=== PATIENT | male | born 1940 | race Hispanic/Latino ===

== ENCOUNTER 2018-02-22 09:57 | Emergency (ER) | payer OTHER, MEDICARE ==
[2018-02-25] MEDS ORDERED: AMIO200T5 PO (20:06)
[2018-02-25] MEDS ORDERED: CICL34.62 TP (20:06)
[2018-02-25] MEDS ORDERED: LISI-613 PO (20:06)
[2018-02-25] MEDS ORDERED: TYL3 PO (20:06)
[2018-02-25] MEDS ORDERED: SIMV10TA6 PO (20:06)
[2018-02-25] MEDS ORDERED: CLIN150C10 PO (20:06)
[2018-02-25] MEDS ORDERED: CARV3.12 PO (20:06)
[2018-02-25] MEDS ORDERED: METF-446 PO (20:06)
[2018-02-25] MEDS ORDERED: GLIM2TAB3 PO (20:06)
== END 2018-02-22 11:51 | disposition home or self-care (01) ==
LOC: EDH 09:57 → EDBD 09:58 → EDHIP 09:58 → UNDOADMIN 09:58 → EDH 11:51
DX: J39.2 Other diseases of pharynx (principal); I10 Essential (primary) hypertension; E11.9 Type 2 diabetes mellitus without complications; Z98.890 Other specified postprocedural states

== ENCOUNTER 2018-03-30 04:18 | Emergency (ER) | payer OTHER, MEDICARE ==
[~2018-03-30 04:18] MED LIST: AMIO200T5 PO; CARV3.12 PO; CICL34.62 TP; CLIN150C10 PO; GLIM2TAB3 PO; LISI-613 PO; METF-446 PO; SIMV10TA6 PO; TYL3 PO
[2018-03-30] MEDS ORDERED: ASPIRIN 325 MG TABLET ONE (04:39)
[2018-03-30 04:50] LABS: BASOPHILS % (AUTO) 1.2 % (0.0-5.0); EOSINOPHILS % (AUTO) 2.5 % (0.0-8.0); HEMATOCRIT 40.4 % (42-54); LYMPHOCYTES % (AUTO) 16.6 % (21.0-51.0); MEAN CORPUSCULAR HEMOGLOBIN 30.5 pg (27.0-33.0); MEAN CORPUSCULAR HGB CONC 34.4 g/dL (32.0-36.0); MEAN CORPUSCULAR VOLUME 88.6 fL (79-99); NEUTROPHILS % (AUTO) 71.7 % (40.0-77.0); NUCLEATED RED BLOOD CELLS 0.1 % (0.0-0.19); PLATELET COUNT (AUTO) 159 K/uL (130-400); RED BLOOD CELL COUNT(AUTO) 4.56 MIL/uL (4.50-6.20); RED CELL DISTRIBUTION WIDTH 13.7 % (11.0-15.5); WHITE BLOOD COUNT (AUTO) 10.4 K/uL (4.8-10.8)
[2018-03-30 04:56] LABS: INR 0.93 (0.85-1.15); PARTIAL THROMBOPLASTIN TIME 19.6 SEC (26.3-35.5); PROTHROMBIN TIME 9.8 SEC (9.6-11.6)
[2018-03-30 04:57] LABS: CREATININE 0.8 mg/dL (0.5-1.5); POTASSIUM 4.6 mmol/L (3.5-5.1)
[2018-03-30 05:02] LABS: ALBUMIN 2.8 g/dL (3.5-5.0); TOTAL PROTEIN, SERUM 5.9 g/dL (6.0-8.3)
[2018-03-30 05:16] LABS: B-TYPE NATRIURETIC PEPTIDE 63 pg/mL (0-100)
== END 2018-03-30 06:14 | disposition home or self-care (01) ==
LOC: EDH 04:18
DX: R00.2 Palpitations (principal); E11.9 Type 2 diabetes mellitus without complications; I10 Essential (primary) hypertension; Z96.649 Presence of unspecified artificial hip joint
CPT/HCPCS: 36415; 71045; 80053; 82550; 83880; 84484; 85025; 85610; 85730; 93005

== ENCOUNTER 2018-07-04 16:48 | Emergency (ER) | payer OTHER, MEDICARE ==
[2018-07-04] MEDS ORDERED: TETANUS/DIPHTHERIA TOXOID [ADULT] 0.5 ML VIAL IM ONE (17:11)
[2018-07-04] MEDS ORDERED: OCTYL 2-CYANOACRYLATE 1 EACH TP ONE (17:11)
== END 2018-07-04 17:40 | disposition home or self-care (01) ==
LOC: EDH 16:48
DX: S61.512A Laceration without foreign body of left wrist, initial encounter (principal); E11.9 Type 2 diabetes mellitus without complications; I10 Essential (primary) hypertension; Z98.890 Other specified postprocedural states; Z85.72 Personal history of non-Hodgkin lymphomas; W26.0XXA Contact with knife, initial encounter; Y93.89 Activity, other specified; Y92.098 Other place in other non-institutional residence as the place of occurrence of the external cause; Y99.8 Other external cause status
CPT/HCPCS: 12041; 73110; 90471; 90714

== ENCOUNTER 2018-09-22 09:38 | Emergency (ER) | payer OTHER, MEDICARE ==
[2018-09-22] MEDS ORDERED: ACETAMINOPHEN EXTRA STRENGTH 500 MG TABLET ONE (10:11)
== END 2018-09-22 10:47 | disposition home or self-care (01) ==
LOC: EDH 09:38
DX: S82.831A Other fracture of upper and lower end of right fibula, initial encounter for closed fracture (principal); I10 Essential (primary) hypertension; E11.9 Type 2 diabetes mellitus without complications; Z98.890 Other specified postprocedural states; Z96.649 Presence of unspecified artificial hip joint; W18.39XA Other fall on same level, initial encounter; Y93.01 Activity, walking, marching and hiking; Y92.009 Unspecified place in unspecified non-institutional (private) residence as the place of occurrence of the external cause; Y99.8 Other external cause status
CPT/HCPCS: 29515; 73610

== ENCOUNTER 2019-09-24 08:20 | Observation (INO) | payer OTHER, MEDICARE ==
[~2019-09-24 08:20] MED LIST changes: -AMIO200T5 PO; +AMIO200T6 PO; -GLIM2TAB3 PO; +GLIM2TAB30 PO; -SIMV10TA6 PO; +SIMV10TA97 PO
[2019-09-24 08:38] LABS: BASOPHILS % (AUTO) 0.4 % (0.0-5.0); EOSINOPHILS % (AUTO) 3.6 % (0.0-8.0); HEMATOCRIT 39.3 % (42-54); LYMPHOCYTES % (AUTO) 22.1 % (21.0-51.0); MEAN CORPUSCULAR HEMOGLOBIN 28.9 pg (27.0-33.0); MEAN CORPUSCULAR HGB CONC 32.3 g/dL (32.0-36.0); MEAN CORPUSCULAR VOLUME 89.3 fL (79-99); MONOCYTES % (AUTO) 11.4 % (3.0-13.0); NEUTROPHILS % (AUTO) 62.2 % (40.0-77.0); PLATELET COUNT (AUTO) 176 K/uL (130-400); RED CELL DISTRIBUTION WIDTH 14.3 % (11.0-15.5); WHITE BLOOD COUNT (AUTO) 6.9 K/uL (4.8-10.8)
[2019-09-24] MEDS ORDERED: DILTIAZEM HCL 5 MG/ML 10 ML VIAL IV ONE ×2 (08:59→09:08)
[2019-09-24] MEDS ORDERED: SODIUM CHLORIDE 0.9% 100 ML IV ONE (09:00)
[2019-09-24 09:01] LABS: CREATININE 0.9 mg/dL (0.5-1.5); POTASSIUM 4.9 mmol/L (3.5-5.1)
[2019-09-24] MEDS ORDERED: DEXTROSE 50%-WATER 50 ML DISP.SYRIN IV PRN (09:45)
[2019-09-24] MEDS ORDERED: POTASSIUM CHLORIDE 20MEQ/100ML 100 ML IV PRN (09:45)
[2019-09-24] MEDS ORDERED: POTASSIUM CHLORIDE 20 MEQ ERTAB PO PRN (09:45)
[2019-09-24] MEDS ORDERED: GLUCAGON 1MG KIT 1 MG ML IM PRN (09:45)
[2019-09-24] MEDS ORDERED: POTASSIUM CHLORIDE 10% ELIXIR 20 MEQ/15 ML UDCUP PO PRN (09:45)
[2019-09-24] MEDS ORDERED: DILTIAZEM 125MG+100 ML NS 125 ML IV PRN (09:45)
[2019-09-24] MEDS ORDERED: LIDOCAINE HCL-MPF 1% 2ML VIAL IJ PRN (09:45)
[2019-09-24] MEDS: INSULIN R PO SS1 SQ SCH ×3 (11:30→21:00)
[2019-09-24] MEDS ORDERED: ENOXAPARIN SODIUM 60 MG/0.6 ML SQ ONE (16:06)
[2019-09-24] MEDS ORDERED: AMIODARONE HCL 200 MG TABLET PO ONE (16:06)
[2019-09-24] MEDS ORDERED: DIGOXIN 250 MCG/ML 2ML AMP ONE (16:06)
[2019-09-24] MEDS ORDERED: CARVEDILOL 6.25 MG TABLET PO ONE (16:07)
[2019-09-24 20:36] LABS: ABG BASE EXCESS -0.8 mmol/L (-2.0-3.0); ABG HCO3 24.1 mmol/L (21.0-28.0); ABG OXYGEN SATURATION 96.4 % (95.0-99.0); ABG PCO2 41 mmHg (35-48)
[2019-09-24 22:25] VITALS: BP 133/65
[2019-09-24 22:45] LABS: APPEARANCE,URINE Clear (CLEAR); BILIRUBIN,URINE Negative (NEGATIVE); COLOR,URINE Yellow (YELLOW); GLUCOSE, URINE (UA) 250 mg/dL (NEGATIVE); KETONES,URINE Negative (NEGATIVE); LEUKOCYTE ESTERASE ,URINE Negative (NEGATIVE); NITRATE,URINE Negative (NEGATIVE); OCCULT BLOOD,URINE Negative (NEGATIVE); PROTEIN,URINE Negative (NEGATIVE); UROBILINOGEN,URINE 0.2 mg/dL (0.2-1.0)
[2019-09-24 23:23] LABS: BACTERIA,URINE None Seen /HPF (None Seen); RBC,URINE None Seen /HPF (0-1); WBC,URINE None Seen /HPF (0-1)
[2019-09-24 23:24] LABS: SQUAMOUS EPITHELIAL CELL,UR Rare /HPF (0-2)
[2019-09-24 23:56] VITALS: BP 122/53
[2019-09-25 02:34] LABS: HEMATOCRIT 35.4 % (42-54); MEAN CORPUSCULAR HEMOGLOBIN 29.5 pg (27.0-33.0); MEAN CORPUSCULAR HGB CONC 33.1 g/dL (32.0-36.0); MEAN CORPUSCULAR VOLUME 89.4 fL (79-99); RED BLOOD CELL COUNT(AUTO) 3.96 MIL/uL (4.50-6.20); RED CELL DISTRIBUTION WIDTH 13.8 % (11.0-15.5); WHITE BLOOD COUNT (AUTO) 6.6 K/uL (4.8-10.8)
[2019-09-25 03:05] LABS: CREATININE 1.2 mg/dL (0.5-1.5); POTASSIUM 4.2 mmol/L (3.5-5.1); THYROID STIMULATING HORMONE 5.65 uIU/mL (0.36-3.74)
[2019-09-25 04:35] VITALS: BP 126/65
[2019-09-25] MEDS: INSULIN R PO SS1 SQ SCH ×4 (06:06→21:23)
[2019-09-25 08:40] VITALS: BP 126/68
[2019-09-25] MEDS: AMIODARONE HCL 200 MG TABLET PO SCH (09:30)
[2019-09-25] MEDS: CARVEDILOL 3.125 MG TABLET PO SCH ×2 (09:30→21:14)
[2019-09-25] MEDS: LISINOPRIL 20 MG TABLET PO SCH (09:30)
[2019-09-25] MEDS ORDERED: REGADENOSON 0.4 MG/5 ML PF SYG IVP SCH (09:30)
[2019-09-25] MEDS: ENOXAPARIN SODIUM 80 MG/0.8 ML SQ SCH ×2 (09:31→21:16)
[2019-09-25 10:55] VITALS: BP 119/61
[2019-09-25] MEDS ORDERED: DIGOXIN 125 MCG TABLET PO SCH (16:00)
[2019-09-25 17:07] VITALS: BP 133/81
[2019-09-25 19:00] VITALS: BP 109/55
[2019-09-25] MEDS ORDERED: SIMVASTATIN 10 MG TABLET PO SCH (21:00)
[2019-09-25 23:00] VITALS: BP 108/54
[2019-09-26 03:00] VITALS: BP 111/56
[2019-09-26 04:48] LABS: HEMATOCRIT 34.5 % (42-54); MEAN CORPUSCULAR HEMOGLOBIN 29.6 pg (27.0-33.0); MEAN CORPUSCULAR HGB CONC 33.3 g/dL (32.0-36.0); MEAN CORPUSCULAR VOLUME 88.7 fL (79-99); RED BLOOD CELL COUNT(AUTO) 3.89 MIL/uL (4.50-6.20); RED CELL DISTRIBUTION WIDTH 13.7 % (11.0-15.5); WHITE BLOOD COUNT (AUTO) 7.2 K/uL (4.8-10.8)
[2019-09-26 05:29] LABS: POTASSIUM 4.2 mmol/L (3.5-5.1)
[2019-09-26] MEDS: INSULIN R PO SS1 SQ SCH ×2 (07:30→11:23)
--- NOTE | 2019-09-26 08:25 | NUR ---
DR. FRANCO IN TO SEE PATIENT, UPDATE GIVEN. PATIENT MAY BE DISMISSED ONCE SEEN BY PRIMARY, BENCHMARK GROUP.
[2019-09-26] MEDS: AMIODARONE HCL 200 MG TABLET PO SCH (08:34)
[2019-09-26] MEDS: CARVEDILOL 3.125 MG TABLET PO SCH (08:35)
[2019-09-26] MEDS: LISINOPRIL 20 MG TABLET PO SCH (08:35)
[2019-09-26] MEDS: ENOXAPARIN SODIUM 80 MG/0.8 ML SQ SCH (08:36)
[2019-09-26 08:40] VITALS: BP 128/55
--- NOTE | 2019-09-26 09:00 | NUR ---
SHAWN NOTE/IA MEET WITH PATIENT IN ROOM. PER PATIENT LIVES WITH SPOUSE AND HER ADULT SON, INDEPENDENT WITH ADLS, DRIVES, HAS PROVIDER DAILY BUT UNSURE OF DAILY HOURS, HAS USE OF CANE, ROLLATOR WALKER AND SHOWER CHAIR, AND FEELS SAFE TO RETURN HOME ONCE DISCHARGED. Addendum: 09/26/19 at 1826 by DINESH RIVAS RN CM Amended: Links added.
[2019-09-26 11:59] VITALS: BP 106/44
--- NOTE | 2019-09-26 14:25 | NUR ---
GIVEN DISMISSAL INSTRUCTIONS, NO NEW SCRIPTS. VERBALIZED UNDERSTANDING. REMOVED SALINE LOCK FROM RIGHT ARM, IV SITE WITHOUT REDNESS NOTED. REMOVED TELE PACK. TAKEN TO PRIVATE VIA WHEELCHAIR ALONG WITH PERSONAL BELONGINGS BY FELICE PCP.
--- NOTE | 2019-09-26 15:48 | NUR ---
CM NOTE PATIENT DISCHARGED BEFORE ASSESSMENT COMPLETED. NO NEEDS REPORTED BY NURSING STAFF. Addendum: 09/26/19 at 1549 by DINESH RIVAS RN CM Amended: Links added.
== END 2019-09-26 14:30 | disposition home or self-care (01) ==
LOC: EDH 08:20 → INTOOBSV 09:31 → EDHIP 09:31 → OBSVTOIN 09:31 → 4AH 22:36
PROVIDERS: ADMIT Internal Medicine Critical Care Medicine; ATTEND Internal Medicine Critical Care Medicine
DX: I48.0 Paroxysmal atrial fibrillation (principal); E11.9 Type 2 diabetes mellitus without complications; E78.5 Hyperlipidemia, unspecified; I10 Essential (primary) hypertension; R53.83 Other fatigue; Z96.642 Presence of left artificial hip joint; Z79.84 Long term (current) use of oral hypoglycemic drugs; Z79.899 Other long term (current) drug therapy; Z85.72 Personal history of non-Hodgkin lymphomas; Z92.21 Personal history of antineoplastic chemotherapy
CPT/HCPCS: 36415 ×3; 36600; 71045; 78452; 80048 ×3; 81001; 82550 ×3; 82803; 82948 ×6; 84443; 84484 ×4; 85025; 85027 ×2; 93005 ×2; 93017; 93306; 93356; 96372 ×2; 99291; A9500 ×2; G0378 ×16; J1160; J1650 ×4; J1815 ×3; J2785; J3490; 96374

== ENCOUNTER 2020-06-23 08:50 | Observation (INO) | payer OTHER, MEDICARE ==
[~2020-06-23] VITALS: Ht 172.7 cm; Wt 69.1 kg
[2020-06-23] MEDS: AMIODARONE HCL 900 MG in DEXTROSE 5%-WATER 500 ML IV NR (06:00)
[~2020-06-23 08:50] MED LIST changes: -CLIN150C10 PO; -LISI-613 PO; +LISI20TA24 PO
[2020-06-23 09:09] LABS: BASOPHILS % (AUTO) 0.5 % (0.0-5.0); EOSINOPHILS % (AUTO) 1.6 % (0.0-8.0); HEMATOCRIT 37.5 % (42-54); LYMPHOCYTES % (AUTO) 17.7 % (21.0-51.0); MEAN CORPUSCULAR HEMOGLOBIN 29.1 pg (27.0-33.0); MEAN CORPUSCULAR HGB CONC 32.8 g/dL (32.0-36.0); MEAN CORPUSCULAR VOLUME 88.9 fL (79-99); MONOCYTES % (AUTO) 9.4 % (3.0-13.0); NEUTROPHILS % (AUTO) 70.6 % (40.0-77.0); PLATELET COUNT (AUTO) 157 K/uL (130-400); RED BLOOD CELL COUNT(AUTO) 4.22 MIL/uL (4.50-6.20); RED CELL DISTRIBUTION WIDTH 14.3 % (11.0-15.5); WHITE BLOOD COUNT (AUTO) 9.5 K/uL (4.8-10.8)
[2020-06-23] MEDS ORDERED: DILTIAZEM HCL 125 MG/25 ML VIAL IV ONE (09:11)
[2020-06-23 09:20] LABS: INR 1.03 (0.85-1.15); PROTHROMBIN TIME 11.2 SEC (9.6-11.6)
[2020-06-23 09:22] LABS: PARTIAL THROMBOPLASTIN TIME 26.5 SEC (26.3-35.5)
[2020-06-23 09:26] LABS: ALBUMIN 3.7 g/dL (3.5-5.0); CREATININE 1.1 mg/dL (0.5-1.5); POTASSIUM 4.6 mmol/L (3.5-5.1)
[2020-06-23] MEDS ORDERED: AMIODARONE HCL 50 MG/ML 3 ML VIAL ONE (10:01)
[2020-06-23] MEDS ORDERED: SODIUM CHLORIDE 0.9% 1000ML 1,000 ML IV ONE ×2 (10:02→22:13)
[2020-06-23] MEDS ORDERED: METOPROLOL TARTRATE 1 MG/ML 5ML VIAL IV SCH (12:45)
[2020-06-23] MEDS ORDERED: ACETAMINOPHEN 650 MG SUPPOSITORY RC PRN (12:45)
[2020-06-23] MEDS ORDERED: AMIODARONE HCL 450 MG in DEXTROSE 5%-WATER 250 ML IV SCH (12:45)
[2020-06-23] MEDS ORDERED: AMIODARONE HCL 150 MG in DEXTROSE 5%-WATER 100 ML IV SCH (12:45)
[2020-06-23] MEDS ORDERED: LABETALOL 20 MG/4 ML DISP.SYRIN IV PRN (12:45)
[2020-06-23] MEDS ORDERED: ACETAMINOPHEN 325 MG TAB PO PRN (12:45)
[2020-06-23] MEDS ORDERED: GLUCAGON 1MG KIT 1 MG ML IM PRN (14:45)
[2020-06-23] MEDS ORDERED: LIDOCAINE HCL-MPF 1% 2ML VIAL IV PRN ×2 (14:45)
[2020-06-23] MEDS ORDERED: MAGNESIUM 2GM PREMIX 50ML 50 ML IV PRN (14:45)
[2020-06-23] MEDS ORDERED: POTASSIUM CHLORIDE 10% ELIXIR 20 MEQ/15 ML UDCUP PO PRN (14:45)
[2020-06-23] MEDS ORDERED: DEXTROSE 50%-WATER 50 ML DISP.SYRIN IV PRN (14:45)
[2020-06-23] MEDS ORDERED: POTASSIUM CHLORIDE 20MEQ/100ML 100 ML IV PRN ×2 (14:45)
[2020-06-23] MEDS ORDERED: POTASSIUM CHLORIDE 20 MEQ ERTAB PO PRN (14:45)
[2020-06-23] MEDS ORDERED: SODIUM CHLORIDE 0.9% 1000ML 1,000 ML IV SCH (17:30)
[2020-06-23] MEDS ORDERED: FENTANYL CITRATE PF 50 MCG/1 ML 2ML VIAL ONE (17:52)
[2020-06-23] MEDS ORDERED: MIDAZOLAM HCL 5 MG/ML 2ML VIAL IV ONE (17:52)
[2020-06-23] MEDS: FAMOTIDINE 20MG TAB 20 MG TAB PO SCH (21:00)
[2020-06-23] MEDS: ENOXAPARIN SODIUM 80 MG/0.8 ML SQ SCH (21:00)
[2020-06-23] MEDS: INSULIN HUMULIN R 100 UNIT/ML 3ML SQ SCH (21:00)
[2020-06-23] MEDS ORDERED: FAMOTIDINE 20MG TAB 20 MG TAB ONE (22:12)
[2020-06-23] MEDS ORDERED: ENOXAPARIN SODIUM 80 MG/0.8 ML SQ ONE (22:12)
[2020-06-24 02:51] VITALS: BP 126/46
[2020-06-24 04:11] LABS: BASOPHILS % (AUTO) 0.5 % (0.0-5.0); EOSINOPHILS % (AUTO) 3.1 % (0.0-8.0); LYMPHOCYTES % (AUTO) 30.5 % (21.0-51.0); MEAN CORPUSCULAR HEMOGLOBIN 28.9 pg (27.0-33.0); MEAN CORPUSCULAR HGB CONC 32.4 g/dL (32.0-36.0); MEAN CORPUSCULAR VOLUME 89.2 fL (79-99); MONOCYTES % (AUTO) 10.8 % (3.0-13.0); NEUTROPHILS % (AUTO) 54.8 % (40.0-77.0); PLATELET COUNT (AUTO) 127 K/uL (130-400); RED BLOOD CELL COUNT(AUTO) 3.25 MIL/uL (4.50-6.20); RED CELL DISTRIBUTION WIDTH 14.2 % (11.0-15.5); WHITE BLOOD COUNT (AUTO) 5.7 K/uL (4.8-10.8)
[2020-06-24 04:24] LABS: B-TYPE NATRIURETIC PEPTIDE 52 pg/mL (0-100)
[2020-06-24 04:32] LABS: CREATININE 1.1 mg/dL (0.5-1.5); MAGNESIUM 1.1 mg/dL (1.80-2.40); PHOSPHORUS 3.1 mg/dL (2.5-4.9); POTASSIUM 4.4 mmol/L (3.5-5.1)
[2020-06-24] MEDS ORDERED: CARV6.25 PO (04:49)
[2020-06-24] MEDS ORDERED: APIX5TAB PO (04:50)
[2020-06-24] MEDS ORDERED: ONDA4TAB4 PO (04:54)
[2020-06-24] MEDS: AMIODARONE HCL 900 MG in DEXTROSE 5%-WATER 500 ML IV NR (05:20)
[2020-06-24] MEDS: INSULIN HUMULIN R 100 UNIT/ML 3ML SQ SCH (06:29)
[2020-06-24 08:00] VITALS: BP 117/59
[2020-06-24] MEDS ORDERED: MAGNESIUM 2GM PREMIX 50ML 50 ML IV PRN (08:00)
[2020-06-24] MEDS: FAMOTIDINE 20MG TAB 20 MG TAB PO SCH (08:56)
[2020-06-24] MEDS: ENOXAPARIN SODIUM 80 MG/0.8 ML SQ SCH (09:01)
[2020-06-24] MEDS ORDERED: CARVEDILOL 6.25 MG TABLET PO SCH (09:15)
[2020-06-24] MEDS ORDERED: AMIODARONE HCL 200 MG TABLET PO SCH (09:15)
[2020-06-24 11:49] VITALS: BP 156/64
[2020-06-24] MEDS ORDERED: APIXABAN 5 MG TABLET PO SCH (21:00)
== END 2020-06-24 15:00 | disposition home or self-care (01) ==
LOC: EDH 08:50 → OBSVTOIN 12:41 → INTOOBSV 12:41 → EDHIP 12:41 → 4DH 22:45
PROVIDERS: ADMIT Internal Medicine Critical Care Medicine; ATTEND Internal Medicine Critical Care Medicine
DX: I47.1 Supraventricular tachycardia (principal); Z20.822 Contact with and (suspected) exposure to COVID-19; I48.0 Paroxysmal atrial fibrillation; E83.42 Hypomagnesemia; E11.9 Type 2 diabetes mellitus without complications; I10 Essential (primary) hypertension; M19.90 Unspecified osteoarthritis, unspecified site; E78.00 Pure hypercholesterolemia, unspecified; J44.9 Chronic obstructive pulmonary disease, unspecified; Z85.72 Personal history of non-Hodgkin lymphomas; Z87.891 Personal history of nicotine dependence; Z92.21 Personal history of antineoplastic chemotherapy; Z96.642 Presence of left artificial hip joint; Z95.818 Presence of other cardiac implants and grafts; Z79.84 Long term (current) use of oral hypoglycemic drugs; Z79.01 Long term (current) use of anticoagulants; Z79.899 Other long term (current) drug therapy
CPT/HCPCS: 36415 ×2; 71045; 80048; 80053; 82550; 82948 ×3; 83735; 83880; 84100; 84484 ×4; 85025 ×2; 85610; 85730; 87040 ×2; 87426; 92960; 93005 ×4; 96365; 96366; 96372; 99285; G0378 ×25; J0282; J1650 ×2; J1815; J2250; J3010; J3475; J3490; J7030 ×2; U0003; J7060

== ENCOUNTER 2021-08-23 01:03 | Emergency (ER) | payer OTHER ==
[~2021-08-23] VITALS: Ht 172.7 cm; Wt 64.9 kg
[~2021-08-23 01:03] MED LIST changes: -AMIO200T6 PO; +AMIO200T68 PO; +APIX5TAB PO; -CARV3.12 PO; +CARV6.25 PO; +CYAN-35 PO; +DOCU100C33 PO; -LISI20TA24 PO; +ONDA4TAB4 PO; +SENN-2 PO
[2021-08-23] MEDS ORDERED: INSULIN HUMULIN R 100 UNIT/ML 3ML ONE (01:25)
[2021-08-23] MEDS ORDERED: 0.9%NACL 1000ML 1,000 ML IV ONE (01:25)
[2021-08-23] MEDS ORDERED: INSULIN HUMULIN R 100 UNIT/ML 3ML IV ONE (02:00)
[2021-08-23 02:10] LABS: BASOPHILS % (AUTO) 0.4 % (0.0-5.0); EOSINOPHILS % (AUTO) 0.1 % (0.0-8.0); HEMATOCRIT 23.8 % (42-54); LYMPHOCYTES % (AUTO) 16.1 % (21.0-51.0); MEAN CORPUSCULAR HGB CONC 32.4 g/dL (32.0-36.0); MEAN CORPUSCULAR VOLUME 86.5 fL (79-99); MONOCYTES % (AUTO) 13.4 % (3.0-13.0); NEUTROPHILS % (AUTO) 69.8 % (40.0-77.0); PLATELET COUNT (AUTO) 144 K/uL (130-400); RED BLOOD CELL COUNT(AUTO) 2.75 MIL/uL (4.50-6.20); RED CELL DISTRIBUTION WIDTH 15.9 % (11.0-15.5); WHITE BLOOD COUNT (AUTO) 8.1 K/uL (4.8-10.8)
[2021-08-23 02:19] LABS: CREATININE 1.1 mg/dL (0.5-1.5); POTASSIUM 4.8 mmol/L (3.5-5.1)
[2021-08-23 02:24] LABS: ALBUMIN 3.1 g/dL (3.5-5.0); BILIRUBIN,TOTAL 0.7 mg/dL (0.2-1.0); TOTAL PROTEIN, SERUM 6.2 g/dL (6.0-8.3)
[2021-08-23] MEDS ORDERED: 0.9%NACL 1000ML 1,000 ML IV SCH (03:00)
[2021-08-23 03:03] VITALS: BP 118/54
== END 2021-08-23 03:12 | disposition home or self-care (01) ==
LOC: EDH 01:03
DX: E11.65 Type 2 diabetes mellitus with hyperglycemia (principal); I11.0 Hypertensive heart disease with heart failure; E78.00 Pure hypercholesterolemia, unspecified; Z98.890 Other specified postprocedural states; Z79.84 Long term (current) use of oral hypoglycemic drugs; Z79.899 Other long term (current) drug therapy
CPT/HCPCS: 36415; 80053; 82948 ×2; 85025; 96361; 96374; 99284; J1815; J7030

== ENCOUNTER 2021-09-12 17:31 | Emergency (ER) | payer OTHER ==
[~2021-09-12] VITALS: Ht 172.7 cm; Wt 68.0 kg
[2021-09-12 18:23] VITALS: BP 137/60
== END 2021-09-12 18:21 | disposition home or self-care (01) ==
LOC: EDH 17:31
DX: Z48.00 Encounter for change or removal of nonsurgical wound dressing (principal); E11.9 Type 2 diabetes mellitus without complications; E78.00 Pure hypercholesterolemia, unspecified; I10 Essential (primary) hypertension; Z79.899 Other long term (current) drug therapy; Z98.890 Other specified postprocedural states

== ENCOUNTER 2021-12-28 21:24 | Emergency (ER) | payer OTHER ==
[~2021-12-28] VITALS: Ht 172.7 cm; Wt 59.4 kg
[2021-12-28] MEDS ORDERED: DIPHENOXYLATE HCL/ATROPINE 2.5/0.025 MG TAB PO ONE (22:00)
[2021-12-28] MEDS ORDERED: 0.9%NACL 1000ML 1,000 ML IV ONE (22:00)
[2021-12-28 22:15] LABS: BASOPHILS % (AUTO) 0.2 % (0.0-5.0); EOSINOPHILS % (AUTO) 0.1 % (0.0-8.0); HEMATOCRIT 40.1 % (42-54); LYMPHOCYTES % (AUTO) 15.8 % (21.0-51.0); MEAN CORPUSCULAR HEMOGLOBIN 28.8 pg (27.0-33.0); MEAN CORPUSCULAR HGB CONC 33.9 g/dL (32.0-36.0); MONOCYTES % (AUTO) 7.9 % (3.0-13.0); NEUTROPHILS % (AUTO) 75.7 % (40.0-77.0); PLATELET COUNT (AUTO) 166 K/uL (130-400); RED BLOOD CELL COUNT(AUTO) 4.72 MIL/uL (4.50-6.20); RED CELL DISTRIBUTION WIDTH 15.7 % (11.0-15.5); WHITE BLOOD COUNT (AUTO) 8.9 K/uL (4.8-10.8)
[2021-12-28 22:24] LABS: POTASSIUM 4.8 mmol/L (3.5-5.1)
[2021-12-28 22:29] LABS: ALBUMIN 3.9 g/dL (3.5-5.0); TOTAL PROTEIN, SERUM 7.1 g/dL (6.0-8.3)
[2021-12-28] MEDS ORDERED: DIPH1TAB PO (23:02)
[2021-12-28 23:12] VITALS: BP 159/75
== END 2021-12-28 23:20 | disposition home or self-care (01) ==
LOC: EDH 21:24
DX: R19.7 Diarrhea, unspecified (principal); E11.9 Type 2 diabetes mellitus without complications; E78.00 Pure hypercholesterolemia, unspecified; I10 Essential (primary) hypertension; Z79.899 Other long term (current) drug therapy; Z79.84 Long term (current) use of oral hypoglycemic drugs; Z98.890 Other specified postprocedural states
CPT/HCPCS: 99284; 96360; 82150; 84484; 80053; 83690; 85025; 36415; 93005; J7030

== ENCOUNTER 2021-12-30 10:42 | Observation (INO) | payer OTHER ==
[~2021-12-30] VITALS: Ht 172.7 cm; Wt 59.0 kg
[~2021-12-30 10:42] MED LIST changes: +DIPH1TAB PO
[2021-12-30 11:18] LABS: BASOPHILS % (AUTO) 0.3 % (0.0-5.0); EOSINOPHILS % (AUTO) 0.5 % (0.0-8.0); HEMATOCRIT 42.5 % (42-54); LYMPHOCYTES % (AUTO) 14.1 % (21.0-51.0); MEAN CORPUSCULAR HEMOGLOBIN 28.5 pg (27.0-33.0); MEAN CORPUSCULAR HGB CONC 33.6 g/dL (32.0-36.0); MEAN CORPUSCULAR VOLUME 84.7 fL (79-99); MONOCYTES % (AUTO) 9.8 % (3.0-13.0); PLATELET COUNT (AUTO) 161 K/uL (130-400); RED BLOOD CELL COUNT(AUTO) 5.02 MIL/uL (4.50-6.20); RED CELL DISTRIBUTION WIDTH 15.8 % (11.0-15.5)
[2021-12-30 11:36] LABS: INR 0.95 (0.85-1.15); PROTHROMBIN TIME 10.4 SEC (9.6-11.6)
[2021-12-30 11:38] LABS: B-TYPE NATRIURETIC PEPTIDE 62 pg/mL (0-100)
[2021-12-30 11:39] LABS: ALBUMIN 3.9 g/dL (3.5-5.0); TOTAL PROTEIN, SERUM 7.3 g/dL (6.0-8.3)
[2021-12-30] MEDS ORDERED: DIPHENOXYLATE HCL/ATROPINE 2.5/0.025 MG TAB PO ONE (12:00)
[2021-12-30] MEDS ORDERED: 0.9%NACL 1000ML 1,000 ML IV ONE (12:00)
[2021-12-30] MEDS ORDERED: LACTULOSE 20 GM/30 ML UDCUP PO PRN (14:00)
[2021-12-30] MEDS ORDERED: ONDANSETRON 4MG INJ IVP PRN (14:00)
[2021-12-30] MEDS ORDERED: ALBUTEROL 0.083% 2.5 MG/3 ML INH IH PRN (14:00)
[2021-12-30] MEDS ORDERED: HYDRALAZINE 20MG/ML VIAL IV PRN (14:00)
[2021-12-30] MEDS ORDERED: LABETALOL 20MG SYG IV PRN (14:00)
[2021-12-30] MEDS ORDERED: ACETAMINOPHEN 325 MG TAB PO PRN (14:00)
[2021-12-30] MEDS: LACTATED RINGERS 1000ML 1,000 ML IV SCH (14:14)
[2021-12-30 15:15] LABS: APPEARANCE,URINE CLEAR (CLEAR); BILIRUBIN,URINE NEGATIVE (NEGATIVE); COLOR,URINE LIGHT-YELLOW (YELLOW); GLUCOSE, URINE (UA) NEGATIVE (NEGATIVE); KETONES,URINE NEGATIVE (NEGATIVE); LEUKOCYTE ESTERASE ,URINE NEGATIVE Leu/uL (NEGATIVE); NITRATE,URINE NEGATIVE (NEGATIVE); OCCULT BLOOD,URINE NEGATIVE (NEGATIVE); PROTEIN,URINE NEGATIVE (NEGATIVE); UROBILINOGEN,URINE 0.2 mg/dL (0.2-1.0)
[2021-12-30] MEDS: INSULIN HUMULIN R 100 UNIT/ML 3ML SQ SCH ×2 (16:30→21:40)
[2021-12-30] MEDS ORDERED: FLUCONAZOLE 400 MG/NS 200 ML IV SCH (19:00)
[2021-12-30] MEDS ORDERED: LEVOFLOXACIN 500 MG/D5W 100 ML 100 ML IV SCH (19:00)
[2021-12-30] MEDS ORDERED: LEVOFLOXACIN 500 MG/D5W 100 ML IV SCH (19:00)
[2021-12-30] MEDS ORDERED: FLUCONAZOLE 400 MG/NS 200 ML 200 ML IV SCH (20:00)
[2021-12-30] MEDS: FAMOTIDINE 20MG VIAL IV SCH (20:07)
[2021-12-30 20:51] VITALS: BP 137/62
[2021-12-31 00:37] VITALS: BP 141/59
[2021-12-31] MEDS: LACTATED RINGERS 1000ML 1,000 ML IV SCH (04:14)
[2021-12-31 04:25] VITALS: BP 147/75
[2021-12-31 05:46] LABS: HEMATOCRIT 35.9 % (42-54); MEAN CORPUSCULAR HEMOGLOBIN 28.6 pg (27.0-33.0); MEAN CORPUSCULAR HGB CONC 33.7 g/dL (32.0-36.0); MEAN CORPUSCULAR VOLUME 84.9 fL (79-99); RED BLOOD CELL COUNT(AUTO) 4.23 MIL/uL (4.50-6.20); RED CELL DISTRIBUTION WIDTH 15.9 % (11.0-15.5); WHITE BLOOD COUNT (AUTO) 8.3 K/uL (4.8-10.8)
[2021-12-31] MEDS ORDERED: KETOROLAC 0.5% OS (05:58)
[2021-12-31] MEDS ORDERED: FERR-72 PO (05:58)
[2021-12-31 06:11] LABS: CREATININE 0.8 mg/dL (0.5-1.5); MAGNESIUM 1.2 mg/dL (1.80-2.40); POTASSIUM 4.2 mmol/L (3.5-5.1); THYROID STIMULATING HORMONE 2.26 uIU/mL (0.36-3.74)
[2021-12-31] MEDS: INSULIN HUMULIN R 100 UNIT/ML 3ML SQ SCH ×2 (06:18→11:31)
[2021-12-31 07:30] VITALS: BP 147/64
[2021-12-31] MEDS: FAMOTIDINE 20MG VIAL IV SCH (08:34)
[2021-12-31] MEDS ORDERED: FLUCONAZOLE 400 MG/NS 200 ML IV SCH (09:00)
[2021-12-31] MEDS ORDERED: LEVOFLOXACIN 500 MG/D5W 100 ML IV SCH (09:00)
[2021-12-31] MEDS ORDERED: ENOXAPARIN SODIUM 30 MG/0.3 ML SQ SCH (09:00)
[2021-12-31 11:24] VITALS: BP 120/63
[2021-12-31 11:35] VITALS: BP 141/69
[2021-12-31] MEDS: MAGNESIUM 2GM PREMIX 50ML 50 ML IV SCH ×2 (11:48→13:40)
[2021-12-31] MEDS ORDERED: LEVO750T68 PO (15:51)
[2021-12-31] MEDS ORDERED: METR375C2 PO (15:51)
== END 2021-12-31 16:20 | disposition home or self-care (01) ==
LOC: EDH 10:42 → EDHIP 13:42 → 4AH 15:28
PROVIDERS: ADMIT Internal Medicine; ATTEND Internal Medicine
DX: K52.9 Noninfective gastroenteritis and colitis, unspecified (principal); D72.829 Elevated white blood cell count, unspecified; E86.0 Dehydration; I48.91 Unspecified atrial fibrillation; I11.0 Hypertensive heart disease with heart failure; R19.7 Diarrhea, unspecified; I50.30 Unspecified diastolic (congestive) heart failure; E11.9 Type 2 diabetes mellitus without complications; E78.5 Hyperlipidemia, unspecified; Z96.619 Presence of unspecified artificial shoulder joint; Z96.649 Presence of unspecified artificial hip joint; Z96.659 Presence of unspecified artificial knee joint; Z79.84 Long term (current) use of oral hypoglycemic drugs; Z79.899 Other long term (current) drug therapy; Z98.890 Other specified postprocedural states
CPT/HCPCS: 96361 ×2; 96365; 96366 ×2; 96375; 96368; 99285; 84484; 80053; 83880 ×2; 85025; 85610; 87046; 82948 ×4; 87324; 82270; 81003; 36415 ×2; 71045; 74176; 93005; 96376; 96372; 96367; 84443; 83735; 84100; 80048; 85027; 83605; 84145; J1815 ×2; G0378 ×26; J7120; J3490 ×2; J1956; J1450 ×2; J3475 ×2; J1650

== ENCOUNTER 2022-01-06 13:33 | Inpatient (IN) | payer OTHER ==
[~2022-01-06] VITALS: Ht 172.7 cm; Wt 60.4 kg
[~2022-01-06 13:33] MED LIST changes: -CICL34.62 TP; -CYAN-35 PO; -DOCU100C33 PO; +FERR-72 PO; +KETOROLAC 0.5% OS; +LEVO750T68 PO; +METR375C2 PO; -ONDA4TAB4 PO; -TYL3 PO
[2022-01-06 14:09] LABS: BASOPHILS % (AUTO) 0.5 % (0.0-5.0); EOSINOPHILS % (AUTO) 0.6 % (0.0-8.0); HEMATOCRIT 43.3 % (42-54); LYMPHOCYTES % (AUTO) 24.2 % (21.0-51.0); MEAN CORPUSCULAR HEMOGLOBIN 28.8 pg (27.0-33.0); MEAN CORPUSCULAR HGB CONC 34.6 g/dL (32.0-36.0); MEAN CORPUSCULAR VOLUME 83.3 fL (79-99); MONOCYTES % (AUTO) 8.1 % (3.0-13.0); NEUTROPHILS % (AUTO) 66.1 % (40.0-77.0); PLATELET COUNT (AUTO) 181 K/uL (130-400); RED CELL DISTRIBUTION WIDTH 16.1 % (11.0-15.5); WHITE BLOOD COUNT (AUTO) 8.2 K/uL (4.8-10.8)
[2022-01-06 14:17] LABS: CREATININE 1.1 mg/dL (0.5-1.5); POTASSIUM 4.6 mmol/L (3.5-5.1)
[2022-01-06 14:22] LABS: ALBUMIN 3.7 g/dL (3.5-5.0); TOTAL PROTEIN, SERUM 7.2 g/dL (6.0-8.3)
[2022-01-06] MEDS ORDERED: INSULIN HUMULIN R 100 UNIT/ML 3ML IV ONE (16:30)
[2022-01-06 16:51] LABS: APPEARANCE,URINE CLEAR (CLEAR); BILIRUBIN,URINE NEGATIVE (NEGATIVE); COLOR,URINE LIGHT-YELLOW (YELLOW); GLUCOSE, URINE (UA) >=1000 mg/dL (NEGATIVE); KETONES,URINE NEGATIVE (NEGATIVE); LEUKOCYTE ESTERASE ,URINE NEGATIVE Leu/uL (NEGATIVE); NITRATE,URINE NEGATIVE (NEGATIVE); OCCULT BLOOD,URINE NEGATIVE (NEGATIVE); PROTEIN,URINE NEGATIVE (NEGATIVE); UROBILINOGEN,URINE 0.2 mg/dL (0.2-1.0)
[2022-01-06 16:58] LABS: MUCUS,URINE RARE LPF (None Seen); SQUAMOUS EPITHELIAL CELL,UR RARE /HPF (0-2); WBC,URINE 0-1 /HPF (0-1)
[2022-01-06] MEDS ORDERED: MAGNESIUM 2GM PREMIX 50ML 50 ML IV ONE ×2 (17:30→17:36)
[2022-01-06] MEDS ORDERED: NITROGLYCERIN 0.4 MG SL TAB SL PRN (18:30)
[2022-01-06] MEDS ORDERED: ACETAMINOPHEN 325 MG TAB PO PRN (18:30)
[2022-01-06] MEDS ORDERED: MORPHINE 2 MG SYG IVP PRN (18:30)
[2022-01-06] MEDS ORDERED: ASPIRIN 325MG TAB PO ONE (18:30)
[2022-01-06] MEDS ORDERED: ACETAMINOPHEN 650 MG SUPPOSITORY RC PRN (18:30)
[2022-01-06] MEDS: 0.9%NACL 1000ML 1,000 ML IV SCH (19:42)
[2022-01-06] MEDS: NITROGLYCERIN 1GM OINT 1 INCH/1GM TD SCH (19:42)
[2022-01-06] MEDS: FAMOTIDINE 20MG TAB PO SCH (20:23)
[2022-01-06] MEDS ORDERED: SIMVASTATIN 20 MG TABLET PO SCH (21:00)
[2022-01-07] MEDS: 0.9%NACL 1000ML 1,000 ML IV SCH ×2 (02:16→08:55)
[2022-01-07] MEDS: NITROGLYCERIN 1GM OINT 1 INCH/1GM TD SCH ×3 (02:17→16:29)
[2022-01-07 05:38] LABS: HEMATOCRIT 41.3 % (42-54); MEAN CORPUSCULAR HEMOGLOBIN 28.7 pg (27.0-33.0); MEAN CORPUSCULAR HGB CONC 34.4 g/dL (32.0-36.0); MEAN CORPUSCULAR VOLUME 83.4 fL (79-99); RED BLOOD CELL COUNT(AUTO) 4.95 MIL/uL (4.50-6.20); WHITE BLOOD COUNT (AUTO) 6.8 K/uL (4.8-10.8)
[2022-01-07 06:07] LABS: CREATININE 0.9 mg/dL (0.5-1.5); MAGNESIUM 1.6 mg/dL (1.80-2.40); PHOSPHORUS 4.3 mg/dL (2.5-4.9); POTASSIUM 4.5 mmol/L (3.5-5.1)
[2022-01-07] MEDS ORDERED: LEVO-70 PO (07:36)
[2022-01-07] MEDS ORDERED: IOHEXOL 350 MG/ML 100ML INFUS..BTL IV ONE (08:14)
[2022-01-07] MEDS: METRONIDAZOLE 500 MG TABLET PO SCH ×3 (08:44→21:03)
[2022-01-07] MEDS: AMIODARONE 200 MG TABLET PO SCH (08:44)
[2022-01-07] MEDS: ASPIRIN 81MG CHEW TAB PO SCH (08:44)
[2022-01-07] MEDS: LEVOFLOXACIN 500 MG TABLET PO SCH (08:44)
[2022-01-07] MEDS ORDERED: MAGNESIUM 2GM PREMIX 50ML 50 ML IV ONE (08:56)
[2022-01-07] MEDS ORDERED: LEVOFLOXACIN 750 MG TABLET PO SCH (09:00)
[2022-01-07] MEDS ORDERED: APIXABAN 5 MG TABLET PO SCH (09:00)
[2022-01-07] MEDS ORDERED: ENOXAPARIN SODIUM 40 MG/0.4 ML SYRINGE SQ SCH (09:00)
[2022-01-07] MEDS ORDERED: INSULIN HUMULIN R 100 UNIT/ML 3ML ONE (13:49)
[2022-01-07] MEDS ORDERED: GLUCAGON 1MG KIT 1 MG ML IM PRN (14:00)
[2022-01-07] MEDS ORDERED: DEXTROSE 50%-WATER 50 ML DISP.SYRIN IV PRN (14:00)
[2022-01-07] MEDS: INSULIN HUMULIN R 100 UNIT/ML 3ML SQ SCH ×2 (16:26→21:12)
[2022-01-07 17:27] VITALS: BP 155/72
[2022-01-07 20:09] VITALS: BP 152/79
[2022-01-07] MEDS ORDERED: SIMVASTATIN 10 MG TABLET PO SCH (21:00)
[2022-01-07] MEDS: CARVEDILOL 6.25 MG TABLET PO SCH (21:03)
[2022-01-07] MEDS: ATORVASTATIN 40 MG TABLET PO SCH (21:03)
[2022-01-07] MEDS: FAMOTIDINE 20MG TAB PO SCH (21:03)
[2022-01-07 23:49] VITALS: BP 154/81
[2022-01-08] MEDS: NITROGLYCERIN 1GM OINT 1 INCH/1GM TD SCH ×3 (01:48→16:20)
[2022-01-08] MEDS: 0.9%NACL 1000ML 1,000 ML IV SCH (03:49)
[2022-01-08 04:17] VITALS: BP 136/62
[2022-01-08] MEDS: INSULIN HUMULIN R 100 UNIT/ML 3ML SQ SCH ×5 (06:28→20:12)
[2022-01-08] MEDS: CARVEDILOL 6.25 MG TABLET PO SCH ×2 (09:12→20:12)
[2022-01-08] MEDS: METRONIDAZOLE 500 MG TABLET PO SCH ×3 (09:13→20:11)
[2022-01-08] MEDS: LEVOFLOXACIN 500 MG TABLET PO SCH (09:13)
[2022-01-08] MEDS: ASPIRIN 81MG CHEW TAB PO SCH (09:13)
[2022-01-08] MEDS: AMIODARONE 200 MG TABLET PO SCH (09:13)
[2022-01-08 09:20] VITALS: BP 144/79
[2022-01-08] MEDS ORDERED: MAGNESIUM HYDROXIDE 30 ML/UDCUP PO SCH (10:30)
[2022-01-08 12:38] VITALS: BP 126/64
[2022-01-08 16:00] VITALS: BP 145/78
[2022-01-08] MEDS: LACTULOSE 20 GM/30 ML UDCUP PO SCH (19:25)
[2022-01-08] MEDS: ATORVASTATIN 40 MG TABLET PO SCH (20:11)
[2022-01-08] MEDS: FAMOTIDINE 20MG TAB PO SCH (20:11)
[2022-01-08 20:32] VITALS: BP 141/74
[2022-01-08 23:59] VITALS: BP 134/78
[2022-01-09] MEDS: NITROGLYCERIN 1GM OINT 1 INCH/1GM TD SCH ×3 (01:01→17:55)
[2022-01-09 04:38] VITALS: BP 128/66
[2022-01-09] MEDS: INSULIN HUMULIN R 100 UNIT/ML 3ML SQ SCH ×4 (05:25→19:50)
[2022-01-09] MEDS: LACTULOSE 20 GM/30 ML UDCUP PO SCH ×2 (05:25→19:51)
[2022-01-09 07:43] VITALS: BP 155/60
[2022-01-09] MEDS: METRONIDAZOLE 500 MG TABLET PO SCH ×3 (08:45→19:52)
[2022-01-09] MEDS: ASPIRIN 81MG CHEW TAB PO SCH (08:45)
[2022-01-09] MEDS: LEVOFLOXACIN 500 MG TABLET PO SCH (08:45)
[2022-01-09] MEDS: AMIODARONE 200 MG TABLET PO SCH (08:45)
[2022-01-09] MEDS: CARVEDILOL 6.25 MG TABLET PO SCH ×2 (08:46→19:51)
[2022-01-09] MEDS ORDERED: REGADENOSON 0.4 MG/5 ML PF SYG IVP SCH (09:30)
[2022-01-09 12:21] VITALS: BP 132/68
[2022-01-09] MEDS ORDERED: ONDANSETRON 4MG INJ IVP PRN (12:30)
[2022-01-09 15:45] VITALS: BP 127/67
[2022-01-09] MEDS: ATORVASTATIN 40 MG TABLET PO SCH (19:52)
[2022-01-09] MEDS: FAMOTIDINE 20MG TAB PO SCH (19:52)
[2022-01-09 20:10] VITALS: BP 139/64
[2022-01-09 23:36] VITALS: BP 141/74
[2022-01-10] MEDS: NITROGLYCERIN 1GM OINT 1 INCH/1GM TD SCH (02:36)
[2022-01-10 03:41] VITALS: BP 138/71
[2022-01-10] MEDS: INSULIN HUMULIN R 100 UNIT/ML 3ML SQ SCH (05:02)
[2022-01-10 07:37] VITALS: BP 160/75
[2022-01-10] MEDS: ASPIRIN 81MG CHEW TAB PO SCH (08:42)
[2022-01-10 08:43] VITALS: BP 160/75
[2022-01-10] MEDS: CARVEDILOL 6.25 MG TABLET PO SCH (08:43)
[2022-01-10] MEDS ORDERED: SOTALOL HCL 80 MG TABLET PO SCH (21:00)
[2022-01-10] MEDS ORDERED: APIXABAN 5 MG TABLET PO SCH ×2 (21:00)
== END 2022-01-10 10:28 | disposition home or self-care (01) | DRG 303 ==
LOC: EDH 13:33 → OBSVTOIN 18:01 → EDHIP 18:01 → 4AH 01-07 15:52
PROVIDERS: ADMIT Internal Medicine Pulmonary Disease; ATTEND Internal Medicine Pulmonary Disease
DX: I25.110 Atherosclerotic heart disease of native coronary artery with unstable angina pectoris (principal); C85.90 Non-Hodgkin lymphoma, unspecified, unspecified site; I50.30 Unspecified diastolic (congestive) heart failure; I48.0 Paroxysmal atrial fibrillation; I11.0 Hypertensive heart disease with heart failure; E11.65 Type 2 diabetes mellitus with hyperglycemia; E78.00 Pure hypercholesterolemia, unspecified; Z96.619 Presence of unspecified artificial shoulder joint; E83.42 Hypomagnesemia; Z79.84 Long term (current) use of oral hypoglycemic drugs; Z79.01 Long term (current) use of anticoagulants; Z79.899 Other long term (current) drug therapy
CPT/HCPCS: 36415; 71045; 71275; 78452; 80048; 80053; 80061; 81001; 82010; 82550; 82947; 82948; 83735; 83874; 83880; 84100; 84484; 85025; 85027; 85378; 93005; 93017; 93306; 93970; 96374; A9500; G0378; J1815; J2785; J3475; J7030; Q9967

== ENCOUNTER → 2022-03-04 | Outpatient (CLI) | payer OTHER ==
[~2022-03-04] MED LIST changes: -LEVO750T68 PO; -METR375C2 PO; -SENN-2 PO
== END | disposition home or self-care (01) ==
LOC: SHCH 09:01
PROVIDERS: ATTEND Internal Medicine Cardiovascular Disease
DX: I73.9 Peripheral vascular disease, unspecified (principal)
CPT/HCPCS: 93925

== ENCOUNTER 2022-06-27 12:07 | Emergency (ER) | payer OTHER ==
[~2022-06-27] VITALS: Ht 170.2 cm; Wt 62.6 kg
[2022-06-27 12:09] VITALS: BP 109/67
[2022-06-27 12:29] LABS: BASOPHILS % (AUTO) 0.9 % (0.0-5.0); EOSINOPHILS % (AUTO) 3.6 % (0.0-8.0); LYMPHOCYTES % (AUTO) 29.7 % (21.0-51.0); MEAN CORPUSCULAR HEMOGLOBIN 29.4 pg (27.0-33.0); MEAN CORPUSCULAR HGB CONC 33.1 g/dL (32.0-36.0); MEAN CORPUSCULAR VOLUME 88.8 fL (79-99); MONOCYTES % (AUTO) 9.3 % (3.0-13.0); NEUTROPHILS % (AUTO) 56.4 % (40.0-77.0); PLATELET COUNT (AUTO) 157 K/uL (130-400); RED BLOOD CELL COUNT(AUTO) 4.73 MIL/uL (4.50-6.20); RED CELL DISTRIBUTION WIDTH 13.2 % (11.0-15.5); WHITE BLOOD COUNT (AUTO) 6.9 K/uL (4.8-10.8)
[2022-06-27 12:45] LABS: CREATININE 0.9 mg/dL (0.5-1.5); POTASSIUM 4.3 mmol/L (3.5-5.1)
[2022-06-27 12:50] LABS: TOTAL PROTEIN, SERUM 7.5 g/dL (6.0-8.3)
== END 2022-06-27 15:30 | disposition home or self-care (01) ==
LOC: EDH 12:07
DX: R00.2 Palpitations (principal); I48.91 Unspecified atrial fibrillation; E11.9 Type 2 diabetes mellitus without complications; I10 Essential (primary) hypertension; Z79.01 Long term (current) use of anticoagulants; Z79.1 Long term (current) use of non-steroidal anti-inflammatories (NSAID)
CPT/HCPCS: 36415; 71045; 80053; 84484; 85025; 93005

== ENCOUNTER 2022-08-16 08:25 | Observation (INO) | payer OTHER ==
[~2022-08-16] VITALS: Ht 172.7 cm; Wt 56.9 kg
[2022-08-16 08:48] LABS: BASOPHILS % (AUTO) 0.6 % (0.0-5.0); HEMATOCRIT 42.2 % (42-54); LYMPHOCYTES % (AUTO) 32.2 % (21.0-51.0); MEAN CORPUSCULAR HEMOGLOBIN 29.1 pg (27.0-33.0); MEAN CORPUSCULAR HGB CONC 33.2 g/dL (32.0-36.0); MEAN CORPUSCULAR VOLUME 87.7 fL (79-99); MONOCYTES % (AUTO) 8.7 % (3.0-13.0); NEUTROPHILS % (AUTO) 55.2 % (40.0-77.0); PLATELET COUNT (AUTO) 172 K/uL (130-400); RED BLOOD CELL COUNT(AUTO) 4.81 MIL/uL (4.50-6.20); RED CELL DISTRIBUTION WIDTH 13.7 % (11.0-15.5); WHITE BLOOD COUNT (AUTO) 6.6 K/uL (4.8-10.8)
[2022-08-16 09:01] LABS: INR 0.95 (0.85-1.15); PROTHROMBIN TIME 10.4 SEC (9.6-11.6)
[2022-08-16 09:03] LABS: ALBUMIN 4.2 g/dL (3.5-5.0); CREATININE 0.8 mg/dL (0.5-1.5); POTASSIUM 4.2 mmol/L (3.5-5.1); TOTAL PROTEIN, SERUM 7.9 g/dL (6.0-8.3)
[2022-08-16 09:34] LABS: B-TYPE NATRIURETIC PEPTIDE 159 pg/mL (0-100)
[2022-08-16] MEDS ORDERED: SOTA80TA PO (11:24)
[2022-08-16] MEDS ORDERED: DOCU240C25 PO (11:24)
[2022-08-16] MEDS ORDERED: GUAIFENESIN-DM 200/20 MG 10 ML PO PRN (11:30)
[2022-08-16] MEDS ORDERED: POTASSIUM CHLORIDE 20MEQ/100ML 100 ML IV PRN ×2 (11:30)
[2022-08-16] MEDS ORDERED: IPRATROPIUM 0.5 MG/2.5 ML INH IH PRN (11:30)
[2022-08-16] MEDS ORDERED: KCL 20 MEQ ERTAB PO PRN (11:30)
[2022-08-16] MEDS ORDERED: GLUCAGON 1MG KIT 1 MG ML IM PRN (11:30)
[2022-08-16] MEDS ORDERED: ONDANSETRON 4MG INJ IV PRN (11:30)
[2022-08-16] MEDS ORDERED: POTASSIUM CHLORIDE 10% ELIXIR 20 MEQ/15 ML UDCUP PO PRN (11:30)
[2022-08-16] MEDS ORDERED: DEXTROSE 50%-WATER 50 ML DISP.SYRIN IV PRN (11:30)
[2022-08-16] MEDS ORDERED: HYDRALAZINE 20MG/ML VIAL IV PRN (11:30)
[2022-08-16] MEDS ORDERED: ACETAMINOPHEN WITH CODEINE 1 TAB TAB PO PRN (11:30)
[2022-08-16] MEDS ORDERED: LACTULOSE 20 GM/30 ML UDCUP PO PRN (11:30)
[2022-08-16] MEDS ORDERED: HYDROCODONE/ACETAMINOPHEN 5/325 MG TAB PO PRN ×2 (11:30)
[2022-08-16] MEDS ORDERED: DiphenhydrAMINE HCL 50 MG/ML VIAL IV PRN (11:30)
[2022-08-16] MEDS: INSULIN HUMULIN R 100 UNIT/ML 3ML SQ SCH ×3 (11:30→21:13)
[2022-08-16] MEDS ORDERED: MORPHINE 4 MG SYG IV PRN (11:30)
[2022-08-16] MEDS ORDERED: LACT10SO95 PO (11:54)
[2022-08-16] MEDS ORDERED: DIPHENOXYLATE HCL/ATROPINE 2.5/0.025 MG TAB PO PRN (12:00)
[2022-08-16] MEDS: MAGNESIUM 2GM PREMIX 50ML 50 ML IV PRN (13:59)
[2022-08-16 14:35] LABS: APPEARANCE,URINE CLEAR (CLEAR); BILIRUBIN,URINE NEGATIVE (NEGATIVE); COLOR,URINE COLORLESS (YELLOW); GLUCOSE, URINE (UA) NEGATIVE (NEGATIVE); KETONES,URINE 10 mg/dL (NEGATIVE); LEUKOCYTE ESTERASE ,URINE NEGATIVE Leu/uL (NEGATIVE); NITRATE,URINE NEGATIVE (NEGATIVE); OCCULT BLOOD,URINE NEGATIVE (NEGATIVE); PH,URINE 7.5 (5.0-8.0); PROTEIN,URINE NEGATIVE (NEGATIVE); UROBILINOGEN,URINE 0.2 mg/dL (0.2-1.0)
[2022-08-16 14:36] LABS: WBC,URINE 0-1 /HPF (0-1)
[2022-08-16 15:52] VITALS: BP 155/75
[2022-08-16] MEDS ORDERED: LACTULOSE 20 GM/30 ML UDCUP PO ONE (16:00)
[2022-08-16 16:22] VITALS: BP 121/61
[2022-08-16 16:51] VITALS: BP 149/102
[2022-08-16 17:21] VITALS: BP 160/56
[2022-08-16] MEDS ORDERED: SIMV10TA97 PO (17:29)
[2022-08-16] MEDS ORDERED: METF-446 PO (17:29)
[2022-08-16] MEDS ORDERED: SENN-2 PO (17:29)
[2022-08-16] MEDS ORDERED: GLIM2TAB30 PO (17:29)
[2022-08-16 20:00] VITALS: BP 133/71
[2022-08-16] MEDS: DOCUSATE SODIUM 100 MG CAP PO SCH (20:09)
[2022-08-16] MEDS: FAMOTIDINE 20MG VIAL IV SCH (20:09)
[2022-08-16] MEDS: KETOROLAC 0.5% OS SCH (20:10)
[2022-08-16] MEDS: APIXABAN 5 MG TABLET PO SCH (20:10)
[2022-08-16] MEDS: POLYETHYLENE GLYCOL 3350 17 GM POWD.PACK PO SCH (20:10)
[2022-08-16] MEDS ORDERED: ENOXAPARIN SODIUM 60 MG/0.6 ML SQ SCH (21:00)
[2022-08-16] MEDS ORDERED: SIMVASTATIN 10 MG TABLET PO SCH (21:00)
[2022-08-16] MEDS ORDERED: CARVEDILOL 6.25 MG TABLET PO SCH (21:00)
[2022-08-17] VITALS: BP 140/66
[2022-08-17 04:00] VITALS: BP 97/50
[2022-08-17 04:14] LABS: BASOPHILS % (AUTO) 0.6 % (0.0-5.0); EOSINOPHILS % (AUTO) 3.4 % (0.0-8.0); HEMATOCRIT 35.3 % (42-54); LYMPHOCYTES % (AUTO) 31.9 % (21.0-51.0); MEAN CORPUSCULAR HEMOGLOBIN 29.8 pg (27.0-33.0); MEAN CORPUSCULAR HGB CONC 33.1 g/dL (32.0-36.0); MEAN CORPUSCULAR VOLUME 89.8 fL (79-99); MONOCYTES % (AUTO) 11.6 % (3.0-13.0); NEUTROPHILS % (AUTO) 52.4 % (40.0-77.0); PLATELET COUNT (AUTO) 139 K/uL (130-400); RED BLOOD CELL COUNT(AUTO) 3.93 MIL/uL (4.50-6.20); RED CELL DISTRIBUTION WIDTH 13.7 % (11.0-15.5); WHITE BLOOD COUNT (AUTO) 7.1 K/uL (4.8-10.8)
[2022-08-17 04:32] LABS: CREATININE 0.9 mg/dL (0.5-1.5); MAGNESIUM 1.7 mg/dL (1.80-2.40); POTASSIUM 4.6 mmol/L (3.5-5.1)
[2022-08-17] MEDS: MAGNESIUM 2GM PREMIX 50ML 50 ML IV PRN (05:01)
[2022-08-17] MEDS: INSULIN HUMULIN R 100 UNIT/ML 3ML SQ SCH ×2 (06:39→11:09)
[2022-08-17] MEDS ORDERED: DRON400T7 PO (06:55)
[2022-08-17] MEDS ORDERED: CARV3.12 PO (06:55)
[2022-08-17 07:37] VITALS: BP 152/64
[2022-08-17] MEDS: POLYETHYLENE GLYCOL 3350 17 GM POWD.PACK PO SCH (08:02)
[2022-08-17] MEDS: DOCUSATE SODIUM 100 MG CAP PO SCH (08:03)
[2022-08-17] MEDS: KETOROLAC 0.5% OS SCH (08:03)
[2022-08-17] MEDS: FAMOTIDINE 20MG VIAL IV SCH (08:30)
[2022-08-17 08:31] VITALS: BP 152/64
[2022-08-17] MEDS: APIXABAN 5 MG TABLET PO SCH (08:31)
[2022-08-17] MEDS ORDERED: DOCUSATE CALCIUM 240 MG CAP PO SCH (09:00)
[2022-08-17] MEDS ORDERED: CARVEDILOL 6.25 MG TABLET PO SCH (09:00)
[2022-08-17] MEDS ORDERED: FERROUS SULFATE 325 MG TABLET.DR PO SCH (09:00)
== END 2022-08-17 11:26 | disposition home or self-care (01) ==
LOC: EDH 08:25 → EDHIP 11:19 → 2CV 15:23
PROVIDERS: ADMIT Internal Medicine; ATTEND Internal Medicine
DX: I48.0 Paroxysmal atrial fibrillation (principal); I11.0 Hypertensive heart disease with heart failure; I50.32 Chronic diastolic (congestive) heart failure; R07.89 Other chest pain; E83.42 Hypomagnesemia; K59.00 Constipation, unspecified; E11.65 Type 2 diabetes mellitus with hyperglycemia; E78.5 Hyperlipidemia, unspecified; I47.20 Ventricular tachycardia, unspecified; I49.3 Ventricular premature depolarization; C85.90 Non-Hodgkin lymphoma, unspecified, unspecified site; Z79.01 Long term (current) use of anticoagulants; Z92.21 Personal history of antineoplastic chemotherapy; Z79.899 Other long term (current) drug therapy; Z98.890 Other specified postprocedural states
CPT/HCPCS: 96365; 96366 ×2; 96375; 99285; 83735 ×3; 84484 ×2; 80053; 83880; 85025 ×2; 85610; 82948 ×4; 81001; 36415 ×2; 71045; 93306; 93005 ×2; 96376; 80048; J1815 ×2; G0378 ×23; J3475 ×2; J3490 ×3

== ENCOUNTER 2022-08-18 11:56 | Emergency (ER) | payer OTHER ==
[~2022-08-18] VITALS: Ht 172.7 cm; Wt 65.8 kg
[~2022-08-18 11:56] MED LIST changes: -AMIO200T68 PO; +CARV3.12 PO; -CARV6.25 PO; -DIPH1TAB PO; +DOCU240C25 PO; +DRON400T7 PO; -FERR-72 PO; -KETOROLAC 0.5% OS; +LACT10SO95 PO; +SENN-2 PO
[2022-08-18 12:41] LABS: BASOPHILS % (AUTO) 0.4 % (0.0-5.0); EOSINOPHILS % (AUTO) 1.7 % (0.0-8.0); HEMATOCRIT 40.9 % (42-54); LYMPHOCYTES % (AUTO) 29.6 % (21.0-51.0); MEAN CORPUSCULAR HEMOGLOBIN 29.4 pg (27.0-33.0); MEAN CORPUSCULAR HGB CONC 33.5 g/dL (32.0-36.0); MEAN CORPUSCULAR VOLUME 87.8 fL (79-99); NEUTROPHILS % (AUTO) 59.2 % (40.0-77.0); PLATELET COUNT (AUTO) 180 K/uL (130-400); RED BLOOD CELL COUNT(AUTO) 4.66 MIL/uL (4.50-6.20); RED CELL DISTRIBUTION WIDTH 13.8 % (11.0-15.5); WHITE BLOOD COUNT (AUTO) 7.2 K/uL (4.8-10.8)
[2022-08-18 13:04] LABS: ALBUMIN 3.9 g/dL (3.5-5.0); CREATININE 0.9 mg/dL (0.5-1.5); MAGNESIUM 1.7 mg/dL (1.80-2.40); POTASSIUM 4.6 mmol/L (3.5-5.1); TOTAL PROTEIN, SERUM 7.2 g/dL (6.0-8.3)
[2022-08-18 13:15] LABS: INR 0.95 (0.85-1.15); PROTHROMBIN TIME 10.4 SEC (9.6-11.6)
[2022-08-18] MEDS ORDERED: CARVEDILOL 3.125 MG TABLET PO ONE (15:00)
[2022-08-18 16:37] VITALS: BP 129/92
== END 2022-08-18 16:50 | disposition home or self-care (01) ==
LOC: EDH 11:56
DX: R07.9 Chest pain, unspecified (principal); I10 Essential (primary) hypertension; E78.00 Pure hypercholesterolemia, unspecified; I48.91 Unspecified atrial fibrillation; E11.9 Type 2 diabetes mellitus without complications; Z79.899 Other long term (current) drug therapy; Z79.84 Long term (current) use of oral hypoglycemic drugs
CPT/HCPCS: 36415; 71045; 80053; 83735; 84484; 85025; 85610; 93005

== ENCOUNTER 2022-11-10 09:11 | Emergency (ER) | payer OTHER, MEDICARE ==
[~2022-11-10] VITALS: Ht 180.3 cm; Wt 65.8 kg
[2022-11-10 09:38] LABS: HEMATOCRIT 40.1 % (42-54); MEAN CORPUSCULAR HEMOGLOBIN 29.2 pg (27.0-33.0); MEAN CORPUSCULAR HGB CONC 32.9 g/dL (32.0-36.0); MEAN CORPUSCULAR VOLUME 88.7 fL (79-99); PLATELET COUNT (AUTO) 150 K/uL (130-400); RED BLOOD CELL COUNT(AUTO) 4.52 MIL/uL (4.50-6.20); RED CELL DISTRIBUTION WIDTH 13.5 % (11.0-15.5); WHITE BLOOD COUNT (AUTO) 7.3 K/uL (4.8-10.8)
[2022-11-10 09:40] LABS: APPEARANCE,URINE CLEAR (CLEAR); BILIRUBIN,URINE NEGATIVE (NEGATIVE); COLOR,URINE COLORLESS (YELLOW); GLUCOSE, URINE (UA) NEGATIVE (NEGATIVE); KETONES,URINE 5 mg/dL (NEGATIVE); LEUKOCYTE ESTERASE ,URINE NEGATIVE Leu/uL (NEGATIVE); NITRATE,URINE NEGATIVE (NEGATIVE); OCCULT BLOOD,URINE NEGATIVE (NEGATIVE); PROTEIN,URINE NEGATIVE (NEGATIVE); UROBILINOGEN,URINE 0.2 mg/dL (0.2-1.0)
[2022-11-10 09:46] LABS: POTASSIUM 4.8 mmol/L (3.5-5.1)
[2022-11-10 09:48] LABS: INR 0.96 (0.85-1.15); PROTHROMBIN TIME 11.2 SEC (9.6-11.6)
[2022-11-10 09:49] LABS: PARTIAL THROMBOPLASTIN TIME 28.8 SEC (26.3-35.5)
[2022-11-10 09:50] LABS: ALBUMIN 3.6 g/dL (3.5-5.0); TOTAL PROTEIN, SERUM 6.9 g/dL (6.0-8.3)
[2022-11-10 10:42] VITALS: BP 136/72; PULSE 62; RESP 18; O2SAT 100
[2022-11-10 11:31] LABS: LYMPHOCYTES % (MANUAL) 21 % (22-44); MONOCYTES % (MANUAL) 11 % (2-9); SEGMENTED NEUTROPHILS % 68 % (40-70)
[2022-11-10 11:32] LABS: MAN.DIFF COMMENT-IMPRESSION MANUAL DIFFERENTIAL; PLATELET MORPHOLOGY COMMENT ADEQUATE
== END 2022-11-10 12:15 | disposition home or self-care (01) ==
LOC: EDH 09:11
DX: I48.20 Chronic atrial fibrillation, unspecified (principal); I10 Essential (primary) hypertension; Z79.01 Long term (current) use of anticoagulants; Z79.899 Other long term (current) drug therapy
CPT/HCPCS: 36415; 71045; 80053; 81001; 83880; 84484; 85025; 85610; 85730; 93005

== ENCOUNTER 2023-01-31 07:39 | Observation (INO) | payer OTHER, MEDICARE ==
[~2023-01-31] VITALS: Ht 172.7 cm; Wt 62.0 kg
[~2023-01-31 07:39] MED LIST changes: +AEC81 PO; -CARV3.12 PO; -DOCU240C25 PO; -DRON400T7 PO; +ERGO500093 PO; +ISOS10TA8 PO; +LACT10SO5 PO; -LACT10SO95 PO; +METO25TA6 PO; +NITR0.4T50 SL; -SENN-2 PO
[2023-01-31 08:46] LABS: HEMATOCRIT 37.5 % (42-54); MEAN CORPUSCULAR HEMOGLOBIN 28.8 pg (27.0-33.0); MEAN CORPUSCULAR HGB CONC 32.5 g/dL (32.0-36.0); MEAN CORPUSCULAR VOLUME 88.4 fL (79-99); PLATELET COUNT (AUTO) 143 K/uL (130-400); RED BLOOD CELL COUNT(AUTO) 4.24 MIL/uL (4.50-6.20); RED CELL DISTRIBUTION WIDTH 13.6 % (11.0-15.5); WHITE BLOOD COUNT (AUTO) 6.4 K/uL (4.8-10.8)
[2023-01-31 08:55] LABS: CREATININE 1.2 mg/dL (0.5-1.5); POTASSIUM 4.4 mmol/L (3.5-5.1)
[2023-01-31 09:07] LABS: ALBUMIN 3.4 g/dL (3.5-5.0); MAGNESIUM 1.2 mg/dL (1.80-2.40); TOTAL PROTEIN, SERUM 6.8 g/dL (6.0-8.3)
[2023-01-31 09:29] LABS: BASOPHILS % (MANUAL) 1 % (0-2); EOSINOPHILS % (MANUAL) 4 % (1-6); LYMPHOCYTES % (MANUAL) 42 % (22-44); MONOCYTES % (MANUAL) 7 % (2-9); SEGMENTED NEUTROPHILS % 46 % (40-70); TOTAL CELLS COUNTED 100
[2023-01-31 09:30] VITALS: BP 136/74; PULSE 77; RESP 26
[2023-01-31 09:30] LABS: MAN.DIFF COMMENT-IMPRESSION MANUAL DIFFERENTIAL; PLATELET MORPHOLOGY COMMENT ADEQUATE; WBC MORPHOLOGY TOXIC GRANULATION 1+
[2023-01-31] MEDS ORDERED: AMIODARONE 900MG VIAL 540 MG in DEXTROSE 5%-WATER 300 ML IV SCH (10:00)
[2023-01-31] MEDS ORDERED: AMIODARONE 900MG VIAL 150 MG in DEXTROSE 5%-WATER 100 ML IV SCH (10:00)
[2023-01-31] MEDS ORDERED: AMIODARONE 900MG VIAL 360 MG in DEXTROSE 5%-WATER 200 ML IV SCH (10:00)
[2023-01-31] MEDS ORDERED: NON-FORMULARY MEDICATION 1 EACH (Lactulose 30 ML) PO PRN (10:30)
[2023-01-31] MEDS ORDERED: LACTULOSE 20 GM/30 ML UDCUP PO PRN (10:30)
[2023-01-31] MEDS ORDERED: NITROGLYCERIN 0.4 MG SL TAB SL PRN (10:30)
[2023-01-31 11:00] VITALS: BP 159/80; PULSE 128; RESP 18; O2SAT 99
[2023-01-31] MEDS: MAGNESIUM 2GM PREMIX 50ML 50 ML IV SCH ×2 (15:32→21:48)
[2023-01-31 16:00] VITALS: BP 126/57; PULSE 104; RESP 18
[2023-01-31] MEDS ORDERED: NON-FORMULARY MEDICATION 1 EACH (Metformin HCl 1,000 MG) PO SCH (17:00)
[2023-01-31] MEDS: METFORMIN HCL 500 MG TABLET PO SCH (17:05)
[2023-01-31 19:20] VITALS: BP 128/87; PULSE 120; RESP 18
[2023-01-31 20:00] VITALS: O2SAT 99
[2023-01-31] MEDS ORDERED: ISOSORBIDE MONONITRATE PO SCH (21:00)
[2023-01-31] MEDS: METOPROLOL TARTRATE 25 MG TAB PO SCH (21:46)
[2023-01-31] MEDS: ISOSORBIDE MONONITRATE 20 MG TABLET PO SCH (21:46)
[2023-01-31] MEDS: GLIMEPIRIDE 2 MG TABLET PO SCH (21:46)
[2023-01-31] MEDS: APIXABAN 5 MG TABLET PO SCH (21:46)
[2023-02-01] VITALS (8 sets, daily range): BP systolic 108–134; BP diastolic 54–83; PULSE 57–124; RESP 18–20; O2SAT 99
[2023-02-01] MEDS: METFORMIN HCL 500 MG TABLET PO SCH ×2 (08:00→16:00)
[2023-02-01] MEDS: GLIMEPIRIDE 2 MG TABLET PO SCH (08:47)
[2023-02-01] MEDS: ISOSORBIDE MONONITRATE 20 MG TABLET PO SCH (09:00)
[2023-02-01] MEDS ORDERED: ASPIRIN 81 MG EC TAB PO SCH (09:00)
[2023-02-01] MEDS ORDERED: SIMVASTATIN 10 MG TABLET PO SCH (09:00)
[2023-02-01] MEDS: METOPROLOL TARTRATE 25 MG TAB PO SCH (09:00)
[2023-02-01] MEDS: APIXABAN 5 MG TABLET PO SCH (09:00)
[2023-02-01] MEDS ORDERED: LIDOCAINE PF 100MG/5ML (2%) SYRINGE 5ML ONE (16:35)
[2023-02-01] MEDS ORDERED: PROPOFOL 10 MG/ML 20ML VIAL IV ONE (16:36)
[2023-02-01] MEDS ORDERED: AMIODARONE 200 MG TABLET PO ONE (17:00)
[2023-02-01] MEDS ORDERED: AMIO200T68 PO (17:02)
== END 2023-02-01 18:34 | disposition home or self-care (01) ==
LOC: EDBD → EDH 07:39 → DIRECT 07:40 → 2AH 09:30
PROVIDERS: ADMIT Internal Medicine Cardiovascular Disease; ATTEND Internal Medicine Cardiovascular Disease
DX: I48.19 Other persistent atrial fibrillation (principal); I48.4 Atypical atrial flutter; I10 Essential (primary) hypertension; I25.10 Atherosclerotic heart disease of native coronary artery without angina pectoris
CPT/HCPCS: 96376; 96365; 96366; 96368; 84443; 83735; 80053; 85025; 82948 ×6; 36415; 71045 ×2; 93005 ×2; 92960; G0378 ×34; G0379; A4600; J3475 ×2; J7060 ×2; J0282 ×2; J2001; J2704; 99151; 99152; G0500; J3490

== ENCOUNTER 2023-02-19 10:37 | Emergency (ER) | payer OTHER, MEDICARE ==
[~2023-02-19] VITALS: Ht 172.7 cm; Wt 65.8 kg
[~2023-02-19 10:37] MED LIST changes: +AMIO200T68 PO
[2023-02-19 11:21] VITALS: BP 155/59; PULSE 50; RESP 16; O2SAT 99
[2023-02-19 11:24] LABS: BASOPHILS # (AUTO) 0.02 K/uL (0.00-0.20); BASOPHILS % (AUTO) 0.4 % (0.0-5.0); EOSINOPHILS # (AUTO) 0.11 K/uL (0.00-0.70); EOSINOPHILS % (AUTO) 2.1 % (0.0-8.0); HEMATOCRIT 39.3 % (42-54); IMMATURE GRANULOCYTE ABSOLUTE 0.02 K/uL (0-1); LYMPHOCYTES # (AUTO) 1.5 K/uL (1.0-4.8); LYMPHOCYTES % (AUTO) 27.1 % (21.0-51.0); MEAN CORPUSCULAR HEMOGLOBIN 28.7 pg (27.0-33.0); MEAN CORPUSCULAR HGB CONC 32.8 g/dL (32.0-36.0); MEAN CORPUSCULAR VOLUME 87.5 fL (79-99); MONOCYTES # (AUTO) 0.4 K/uL (0.1-1.0); MONOCYTES % (AUTO) 8.2 % (3.0-13.0); NEUTROPHILS # (AUTO) 3.3 K/uL (1.8-7.7); NEUTROPHILS % (AUTO) 61.8 % (40.0-77.0); PLATELET COUNT (AUTO) 157 K/uL (130-400); RED BLOOD CELL COUNT(AUTO) 4.49 MIL/uL (4.50-6.20); RED CELL DISTRIBUTION WIDTH 14.1 % (11.0-15.5); WHITE BLOOD COUNT (AUTO) 5.4 K/uL (4.8-10.8)
[2023-02-19 11:31] LABS: CREATININE 0.9 mg/dL (0.5-1.5); POTASSIUM 4.8 mmol/L (3.5-5.1)
[2023-02-19 11:37] LABS: ALBUMIN 3.9 g/dL (3.5-5.0); BILIRUBIN,TOTAL 0.8 mg/dL (0.2-1.0); TOTAL PROTEIN, SERUM 7.7 g/dL (6.0-8.3)
[2023-02-19 12:04] LABS: B-TYPE NATRIURETIC PEPTIDE 53 pg/mL (0-100)
[2023-02-19] MEDS ORDERED: 0.9%NACL 1000ML 1,000 ML IV ONE (13:30)
[2023-02-19 13:31] LABS: APPEARANCE,URINE CLEAR (CLEAR); BILIRUBIN,URINE NEGATIVE (NEGATIVE); COLOR,URINE LIGHT-YELLOW (YELLOW); GLUCOSE, URINE (UA) >=1000 mg/dL (NEGATIVE); KETONES,URINE NEGATIVE (NEGATIVE); LEUKOCYTE ESTERASE ,URINE NEGATIVE Leu/uL (NEGATIVE); NITRATE,URINE NEGATIVE (NEGATIVE); OCCULT BLOOD,URINE NEGATIVE (NEGATIVE); PROTEIN,URINE NEGATIVE (NEGATIVE); RBC,URINE 0-1 /HPF (0-1); UROBILINOGEN,URINE 0.2 mg/dL (0.2-1.0); WBC,URINE 0-1 /HPF (0-1)
== END 2023-02-19 14:24 | disposition home or self-care (01) ==
LOC: EDH 10:37
DX: N39.0 Urinary tract infection, site not specified (principal); E86.0 Dehydration; I10 Essential (primary) hypertension; E11.9 Type 2 diabetes mellitus without complications; E78.00 Pure hypercholesterolemia, unspecified; I48.91 Unspecified atrial fibrillation; Z79.82 Long term (current) use of aspirin; Z79.899 Other long term (current) drug therapy; Z85.71 Personal history of Hodgkin lymphoma; Z98.890 Other specified postprocedural states
CPT/HCPCS: 36415; 71045; 80053; 81001; 82550; 83880; 84484; 85025; 93005

== ENCOUNTER → 2023-03-15 | Outpatient (CLI) | payer OTHER, MEDICARE ==
[~2023-03-15] MED LIST changes: +IOHEXOL 350 MG/ML 100ML INFUS..BTL IV ONE
== END | disposition home or self-care (01) ==
LOC: EDBD 09:25 → RAH 09:25
PROVIDERS: ATTEND Internal Medicine Cardiovascular Disease
DX: I25.10 Atherosclerotic heart disease of native coronary artery without angina pectoris (principal); I48.0 Paroxysmal atrial fibrillation; I48.91 Unspecified atrial fibrillation; I48.92 Unspecified atrial flutter
CPT/HCPCS: 71275; Q9967

== ENCOUNTER 2023-08-30 14:07 | Emergency (ER) | payer OTHER, MEDICARE ==
[~2023-08-30] VITALS: Ht 167.6 cm; Wt 63.5 kg
[~2023-08-30 14:07] MED LIST changes: -IOHEXOL 350 MG/ML 100ML INFUS..BTL IV ONE
[2023-08-30 14:59] LABS: HEMATOCRIT 36.1 % (42-54); MEAN CORPUSCULAR HEMOGLOBIN 28.9 pg (27.0-33.0); MEAN CORPUSCULAR HGB CONC 32.4 g/dL (32.0-36.0); MEAN CORPUSCULAR VOLUME 89.1 fL (79-99); PLATELET COUNT (AUTO) 144 K/uL (130-400); RED BLOOD CELL COUNT(AUTO) 4.05 MIL/uL (4.50-6.20); RED CELL DISTRIBUTION WIDTH 14.6 % (11.0-15.5); WHITE BLOOD COUNT (AUTO) 6.9 K/uL (4.8-10.8)
[2023-08-30 15:03] LABS: BASOPHILS # (AUTO) 0.03 K/uL (0.00-0.20); BASOPHILS % (AUTO) 0.5 % (0.0-5.0); EOSINOPHILS # (AUTO) 0.13 K/uL (0.00-0.70); IMMATURE GRANULOCYTE ABSOLUTE 0.02 K/uL (0-1); LYMPHOCYTES # (AUTO) 1.9 K/uL (1.0-4.8); MONOCYTES # (AUTO) 0.6 K/uL (0.1-1.0); MONOCYTES % (AUTO) 8.9 % (3.0-13.0); NEUTROPHILS # (AUTO) 3.9 K/uL (1.8-7.7); NEUTROPHILS % (AUTO) 59.3 % (40.0-77.0)
[2023-08-30 15:09] LABS: CREATININE 1.2 mg/dL (0.5-1.3); POTASSIUM 4.6 mmol/L (3.5-5.1)
[2023-08-30 15:13] LABS: ALBUMIN 3.6 g/dL (3.5-5.0); BILIRUBIN,TOTAL 0.5 mg/dL (0.2-1.0); TOTAL PROTEIN, SERUM 6.9 g/dL (6.0-8.3)
[2023-08-30 17:49] VITALS: BP 105/54; PULSE 58; RESP 20; O2SAT 98
== END 2023-08-30 19:09 | disposition home or self-care (01) ==
LOC: EDH 14:07 → EDBD 14:07 → EDH 19:09
DX: I25.118 Atherosclerotic heart disease of native coronary artery with other forms of angina pectoris (principal); I10 Essential (primary) hypertension; E11.9 Type 2 diabetes mellitus without complications; E78.00 Pure hypercholesterolemia, unspecified; I48.91 Unspecified atrial fibrillation; Z79.82 Long term (current) use of aspirin; Z79.899 Other long term (current) drug therapy; Z98.890 Other specified postprocedural states
CPT/HCPCS: 36415; 71045; 80053; 83880; 84484; 85025; 93005